=== PATIENT | female | born 1990 | race Caucasian/White ===

== ENCOUNTER 2024-08-21 14:49 | Emergency (ER) | payer OTHER, SELFPAY ==
[2024-08-21] VITALS (10 sets, daily range): BP systolic 98–135; BP diastolic 54–70; PULSE 59–88; RESP 16–18; TEMP 36.9; O2SAT 98–100; BMI 23.0
--- NOTE | 2024-08-21 15:17 | DI.CT.S_ITS ---
PROCEDURE: CT HEAD/BRAIN WO CON INDICATIONS: seizure like activity TECHNIQUE: Noncontrast 4.5 mm thick angled axial sections acquired from the foramen magnum to the vertex, with coronal and sagittal reformats. For radiation dose reduction, the following was used: automated exposure control, adjustment of mA and/or kV according to patient size. COMPARISON: None. FINDINGS: Image quality: Diagnostic. CSF spaces: Basal cisterns are patent. No extra-axial fluid collections. Ventricles are normal in size and shape. Brain: No midline shift. No intracranial masses or hemorrhage. Steven-white matter interface is normal. Skull and face: Calvarium and visualized facial bones are intact, without suspicious lesions. Sinuses: Visualized sinuses and mastoids are clear. IMPRESSION: No acute intracranial pathology. No acute intracranial hemorrhage is seen. To the limits of this noncontrast study, no findings of intracranial masses or mass effect can be seen. Dictated by: Alfredo hSay M.D. on 08/21/2024 at 15:00 Approved by: Alfredo Shay M.D. on 08/21/2024 at 15:00
--- NOTE | 2024-08-21 15:40 | EKG_ITS ---
[address] [address] Test Date: 2024-08-21 Pat Name: Ayaka Riley Department: [facility] Room: Gender: Female Consulting Solution Manager: EMERALD : 1990 Requested By: Order Number: [id number] Reading MD: Kishor Samuel Measurements Intervals [place] Rate: 62 P: 64 ME: 148 QRS: 83 QRSD: 76 T: 56 QT: 386 QTc: 391 Interpretive Statements Normal sinus rhythm Electronically Signed On 08-23-2024 7:49:49 PST by Kishor Samuel
--- NOTE | 2024-08-21 15:55 | PC.NURSE ---
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 She states last night she had a headache and had sudden onset of loss of fine motor skills and nystagmus. Patient states that they missed their dose of wellbutrin and vivance yesterday. Patient states that she has had increased stress at home with spouse but denies wanting to speak with foster care social worker. Patient denies abuse. Patient is type 1 diabetic with 222 blood sugar per self pump. Patient states that earlier this week on Friday or Friday she also struck the back of her head. Denies loss of conciousness. Seizure pads placed. Patient states that she has a migraine this morning and is photophobic. Denies nausea or vomiting. Reports having an aura earlier today. Patient wearing sunglasses and reports eye sensitivity and eye feeling heavy, having to work to keep open. A&O x4 had headache/migraine this am and last night. Reports only missed a single dose of Wellbutrin & Vyvanse yesterday (Friday) AM (patient reports has missed a dose in past but not with symptoms described by patient in triage) Patient has not taken a vyvanse dose this am either but did take Wellbutrin as prescribed except the reported missed dose Friday AM.
[2024-08-21 16:07] LABS: Hematocrit 38.1 % (36-46); Mean Corpuscular HGB Conc 34.1 % (30-36); Mean Corpuscular Hemoglobin 32.2 PG (26-34); Mean Corpuscular Volume 94.4 fL (80-100); Platelet Count 270 X10^3/uL (150-400); Red Blood Cell Count 4.04 X10^6/uL (4.0-5.2); Red Cell Distribution Width 12.7 % (11.6-14.8); White Blood Cell Count 7.1 X10^3/uL (4.5-11.0)
[2024-08-21 16:12] LABS: Alanine Aminotransferase 17 IU/L (<35); Albumin 4.4 g/dL (3.5-5.0); Albumin Globulin Ratio 1.4 (1.0-2.8); Alkaline Phosphatase 43 U/L (38-126); Aspartate Aminotransferase 21 IU/L (14-36); Bilirubin Total 0.7 mg/dL (0.2-1.3); Blood Urea Nitrogen 15 mg/dL (7-17); Calcium 9.2 mg/dL (8.4-10.2); Carbon Dioxide 23 mmol/L (22-32); Chloride 104 mmol/L (98-107); Estimated Glomerular Filt Rate > 60 mL/min (>60); Globulin 3.2 g/dL (1.7-4.1); Glucose 199 mg/dL (70-100); HEMOLYSIS < 15 (0-50); Magnesium 1.9 mg/dL (1.6-2.3); Potassium 3.7 mmol/L (3.4-5.1); Sodium 137 mmol/L (137-145); Total Protein 7.6 g/dL (6.3-8.2)
--- NOTE | 2024-08-21 17:21 | ED.NEUROSD ---
HPI - Neuro Symptoms/Deficit General Chief Complaint: Neuro Symptoms/Deficit Stated Complaint: Severe Migraine, Poss Seizure Time Seen by Provider: 08/21/24 15:17 Source: patient Mode of arrival: Ambulatory History of Present Illness HPI Narrative: patient is a 33-year-old female no significant past medical history presents for possible seizure-like activity, she states that she was in an alleged verbal altercation/ argument with her significant other yesterday when her symptoms started, she was worried she might have had a seizure. States that when they were arguing she noted that she started feeling foggy, states that she was having some neck pain / spasming and felt nystagmus to her eyes. States it lasts only for several seconds, states that she is now having persistent headache has improved since initial symptom onset but persist therefore decided come into the ED for further evaluation treatment. No neurological deficits, NIH of 0 at time of initial evaluation. No recent trauma no known falls not on any blood thinners. On Anticoagulants: No Related Data Allergies Allergy/AdvReac Type Severity Reaction Status Date / Time No Known Drug Allergies Allergy Verified 08/21/24 15:10 Review of Systems Review of Systems Narrative: General: Denies fever, chills, weight loss HEENT: Denies headache, eye drainage, eye irritation, head trauma, sore throat, voice change Cardiovascular: Denies any chest pain, palpitations, shortness of breath, tachycardia Respiratory: Denies any shortness of breath, cough, wheeze, stridor GI/: Denies any abdominal pain, nausea, vomiting, diarrhea, bright red blood per rectum, melanotic stools, urinary frequency, urinary retention, dysuria, hematuria MSK: Denies any joint pain, muscle pains, swelling Skin: Denies any rashes, lesions, discoloration Neuro: positive headache, possible seizure-like activity, denieslightheadedness, dizziness, fainting, weakness Psych: Denies SI/HI Hematologic/Lymphatic On Anticoagulants: No Patient History tobacco type: vaping alcohol intake frequency: a few times a week Substance Use Type: marijuana Exam Narrative Exam Narrative: General: Cooperative, comfortable, well-developed, not in acute distress HEENT: Normocephalic, atraumatic, PERRLA, normal sclera, eyelids normal, Neck: Active full range of motion, atraumatic Chest: Normal to inspection, negative crepitus, no overlying erythema ecchymosis Respiratory: Normal respiratory effort, not in acute respiratory distress, clear to auscultation bilaterally negative cough, wheeze, tachypnea, rhonchi, rales Cardiology: Regular rate rhythm negative gallop, murmur, rubs GI/: Normal to inspection, soft, nonrigid, no tenderness to palpation, exam deferred MSK: Full range of active range of motion of all 4 extremities, atraumatic Skin: No rashes lesions noted Neuro: Alert awake oriented x3, moves all 4 extremities spontaneously, cranial nerves intact, able to answer all questions appropriately follows commands appropriately, NIH of 0, no focal deficits noted Psych: Cooperative, negative suicidal or homicidal ideations Initial Vital Signs Initial Vital Signs: Vital Signs Pulse Rate 88 08/21/24 14:56 Respiratory Rate 18 08/21/24 14:56 Blood Pressure 135/68 08/21/24 14:56 Pulse Oximetry 100 08/21/24 14:56 Course Orders Ordered: ED Orders 08/21/24 15:17 CT head/brain wo con Stat EKG-12 Lead Stat 08/21/24 15:44 CBC No Diff [Complete Blood Count NO DIFF] Stat CMP [Comprehensive Metabolic Panel] Stat MAG [Magnesium] Stat Vital Signs Vital signs: Vital Signs - 8 hr 08/21/24 14:56 08/21/24 14:56 08/21/24 15:00 Temperature Pulse Rate 88 70 Respiratory Rate 18 16 Blood Pressure 135/68 135/68 Pulse Oximetry 100 100 Oxygen Delivery Method 08/21/24 15:03 08/21/24 15:31 08/21/24 15:57 Temperature 98.5 F Pulse Rate 86 72 Respiratory Rate 18 18 Blood Pressure 135/68 104/63 Pulse Oximetry 100 99 Oxygen Delivery Method Room Air 08/21/24 15:57 08/21/24 16:00 08/21/24 16:00 Temperature Pulse Rate 72 Respiratory Rate 16 Blood Pressure 102/62 104/66 Pulse Oximetry 99 Oxygen Delivery Method MDM - Neuro Symptoms/Deficit Differential Diagnosis Differential diagnosis: Likely other ( electrolyte abnormality, arrhythmia, intracranial hemorrhage, CVA) Lab Data 08/21/24 15:44 08/21/24 15:44 Labs: Lab Results 08/21/24 Range/Units 15:44 WBC 7.1 (4.5-11.0) X10^3/uL RBC 4.04 (4.0-5.2) X10^6/uL Hgb 13.0 (12.0-16.0) g/dL Hct 38.1 (36-46) % MCV 94.4 (80-100) fL MCH 32.2 (26-34) PG MCHC 34.1 (30-36) % RDW 12.7 (11.6-14.8) % Plt Count 270 (150-400) X10^3/uL Sodium 137 (137-145) mmol/L Potassium 3.7 (3.4-5.1) mmol/L Chloride 104 (98-107) mmol/L Carbon Dioxide 23 (22-32) mmol/L BUN 15 (7-17) mg/dL Creatinine 0.60 (0.52-1.04) mg/dL Estimated GFR > 60 (>60) mL/min BUN/Creatinine Ratio 25.0 H (6-22) Glucose 199 H (70-100) mg/dL Calcium 9.2 (8.4-10.2) mg/dL Magnesium 1.9 (1.6-2.3) mg/dL Total Bilirubin 0.7 (0.2-1.3) mg/dL AST 21 (14-36) IU/L ALT 17 (<35) IU/L Alkaline Phosphatase 43 (38-126) U/L Total Protein 7.6 (6.3-8.2) g/dL Albumin 4.4 (3.5-5.0) g/dL Globulin 3.2 (1.7-4.1) g/dL Albumin/Globulin Ratio 1.4 (1.0-2.8) Imaging Data CT scan - head: Radiologist's Impression: [address] [address] [address] Scan Report Signed Patient: Ayaka Riley MR#: [id number] : 1990 Acct:[id number] Age/Sex: 33 / F Date of Service: 08/21/24 Loc: ED Accession Number: [id number] Procedure: CT head/brain wo con Ordering Provider: Chip Coronel D.O. PROCEDURE: CT HEAD/BRAIN WO CON INDICATIONS: seizure like activity TECHNIQUE: Noncontrast 4.5 mm thick angled axial sections acquired from the foramen magnum to the vertex, with coronal and sagittal reformats. For radiation dose reduction, the following was used: automated exposure control, adjustment of mA and/or kV according to patient size. COMPARISON: None. FINDINGS: Image quality: Diagnostic. CSF spaces: Basal cisterns are patent. No extra-axial fluid collections. Ventricles are normal in size and shape. Brain: No midline shift. No intracranial masses or hemorrhage. Steven-white matter interface is normal. Skull and face: Calvarium and visualized facial bones are intact, without suspicious lesions. Sinuses: Visualized sinuses and mastoids are clear. IMPRESSION: No acute intracranial pathology. No acute intracranial hemorrhage is seen. To the limits of this noncontrast study, no findings of intracranial masses or mass effect can be seen. ECG Data Interpretation: EKG interpreted ED physician sinus at 62 beats per minute, QTC 391, normal axis, nonspecific ST changes, no STEMI MDM Narrative Medical decision making narrative: patient is a 33-year-old female without significant past medical history presents for concerns for seizure-like activity, states that she felt foggy, had a headache and neck pain yesterday when she was in an argument with her significant other, states it lasts for several seconds was worried she might have had a seizure. She denies any recent trauma or falls. She was not and is not currently experiencing any chest pain shortness of breath. CT head was obtained which did not show any acute findings, was watched for several hours here in the emergency department without any seizure-like activity. Patient's symptoms more likely secondary to possible acute stress reaction, versus migraine headache, NIH of 0 no focal deficits was instructed to follow up with primary care and Neurology in outpatient setting strict return precautions were given she verbalized understanding of this and agrees to being discharged home with outpatient follow up. Discharge Plan Departure Patient Disposition: Home Clinical Impression: Headache Activity Restrictions/Additional Instructions: please follow up with primary care and neurology Please read the discharge instructions sheet carefully and bring all papers to all doctor follow-up visits, as it may contain information that your doctor may want to see. Disease processes change and evolve, if your symptoms worsen or if you develop any new symptoms that are concerning to you please return for evaluation. Your evaluation today does not show any evidence of any life-threatening/serious illnesses requiring admission to the hospital or surgery. Please follow-up with your doctor for re-evaluation in approximately 1 day. Seek immediate medical attention for any worrisome symptoms. Stand Alone Forms: Patient Portal/API/Survey
== END 2024-08-21 17:45 | disposition home or self-care (01) ==
PROVIDERS: Emergency Provider Student in an Organized Health Care Education/Training Program
DX: R51.9 Headache, unspecified (principal); M54.2 Cervicalgia; R41.89 Other symptoms and signs involving cognitive functions and awareness
CPT/HCPCS: 36415; 70450; 80053; 83735; 85027; 93005; 99283; 99284